=== PATIENT | female | born 1960 | race Caucasian/White ===

== ENCOUNTER 2024-04-29 07:48 | Inpatient (IN) | payer OTHER ==
[2024-04-29] VITALS (14 sets, daily range): BP systolic 149–170; BP diastolic 70–95
[~2024-04-29] VITALS: Ht 152.4 cm; Wt 77.2 kg
[2024-04-29] MEDS ORDERED: ALBUTEROL SULFATE 0.5% 2.5 MG/0.5 ML VIAL ONE (07:55)
[2024-04-29] MEDS ORDERED: ALBUTEROL SULFATE 0.5% 2.5 MG/0.5 ML VIAL INH ONE (08:00)
[2024-04-29 08:12] LABS: PLATELET COUNT 292 K/uL (140-440)
[2024-04-29 08:14] LABS: HEMATOCRIT 41.6 % (35.0-50.0); MCH 28.1 (27-36); MCHC 31.3 g/dl (30-36); MCV 89.8 fl (81-99); RBC 4.64 M/ul (4.3-5.7); RDW 19.2 (10.5-15.0)
[2024-04-29] MEDS ORDERED: SODIUM CHLORIDE 0.9% 500 ML IV PRN ×2 (08:15→08:45)
[2024-04-29] MEDS ORDERED: CEFTRIAXONE/SODIUM CHLORIDE 1 GM/100 ML PIGGYBACK IV ONE (08:15)
[2024-04-29 08:32] LABS: ALBUMIN 3.7 g/dL (3.4-5.0); ALBUMIN/GLOBULIN RATIO 1.16 (1.1-2.4); BILIRUBIN, TOTAL 0.7 ng/dL (0.2-1.0); BUN/CREATININE RATIO 14.6 (6.0-28.6); CALCIUM 9.3 mg/dL (8.5-10.1); CREATININE, SERUM 0.89 mg/dL (0.55-1.02); PROTEIN, TOTAL 6.9 g/dL (6.4-8.2)
[2024-04-29 08:38] LABS: LYMPHOCYTES, MANUAL DIFF 23; MONOCYTES, MANUAL DIFF 9; NEUTROPHILS, MANUAL DIFF 68
[2024-04-29] MEDS ORDERED: SODIUM CHLORIDE 0.9% 1,000 ML IV ONE (08:45)
[2024-04-29 09:04] LABS: INFLUENZA B NAA NEGATIVE (NEGATIVE); RESPIRATORY SYNCYTIAL VIR NAA NEGATIVE (NEGATIVE)
[2024-04-29 09:09] LABS: PH, VENOUS 7.347 (7.31-7.41)
[2024-04-29] MEDS ORDERED: LIDOCAINE 2% VISCOUS 6 ML SYR TOP ONE (10:00)
[2024-04-29] MEDS ORDERED: ACETAMINOPHEN 325 MG TAB PO PRN (10:30)
[2024-04-29] MEDS ORDERED: ondansetron HCL 4 MG/2 ML VIAL IV PRN (10:30)
--- NOTE | 2024-04-29 11:40 | NUR ---
PT ARRIVES TO CCU ROOM 127, ADMITTED FOR ACUTE HYPOXIC RESP FAILURE. PT ARRIVS ON BIPAP WITH RT PRESENT. PT IS RESTING WITH EYES CLOSED BUT DOES AROUSE WITH VERBAL STIMULATION, ANSWERS QUESTIONS WITH SHORT ANSWERS THROUGH THE BIAP MASK. BIPAP IS AT 16/8 25%. PT ASKED IF SHE IS FEELING BETTER, SHE STATES "YES" AND WHEN ASKED IF HER BREATHING FEELS LABORED SHE STAES "NO". SPO2 97% ON THESE SETTINGS. LUNGS ARE DIM IN BASES, VERY LIGHT WHEEZES IN UPPER LOBES. CALL LIGHT IN REACH AND PT STATES SHE KNOWS HOW TO USE IT.
[2024-04-29] MEDS ORDERED: PHARMACY RENAL DOSE ADJUSTMENT 1 DOSE MISC PO SCH (12:00)
[2024-04-29] MEDS ORDERED: DEXTROSE 50% 50 ML SYR IV PRN ×2 (12:15)
[2024-04-29] MEDS ORDERED: IBLOOD GLUCOSE TEST STRIP 1 EA TEST XX PRN (12:15)
[2024-04-29] MEDS ORDERED: ALBUTEROL/IPRATROPIUM 3 ML NEB INH PRN (12:15)
[2024-04-29] MEDS ORDERED: BENZONATATE 100 MG CAP PO PRN (12:15)
[2024-04-29] MEDS ORDERED: VANCOMYCIN PER PHARMACY PROTOCOL IV SCH (12:15)
[2024-04-29] MEDS ORDERED: GLUCAGON,HUMAN RECOMBINANT 1 MG/ML VIAL SUB-Q PRN (12:15)
[2024-04-29] MEDS ORDERED: DEXTROSE 5% 1,000 ML IV PRN (12:15)
[2024-04-29] MEDS ORDERED: VANCOMYCIN HCL 2,000 MG in DEXTROSE 5% 500 ML IV ONE (12:30)
--- NOTE | 2024-04-29 12:44 | NUR ---
RT IN WITH PT
--- NOTE | 2024-04-29 12:55 | EKG ---
[facility] [address] [place] [address] Signed Sinus tachycardia Right atrial enlargement Borderline ECG When compared with ECG of 17-APR-2024 21:34, , No significant change was found Confirmed by Mary Eller MD () on 04/29/2024 12:54:46 PM Electronically Signed By: MARY ELLER MD 04/29/24 1255 PATIENT NAME: JAYSHREE OVALLE Electrocardiogram DATE OF : 58 PHYSICIAN: MARY ELLER MD REPORT #: [id number] REPORT IS CONFIDENTIAL AND NOT TO BE RELEASED WITHOUT AUTHORIZATION
[2024-04-29] MEDS ORDERED: hydrALAZINE HCL 20 MG/ML VIAL IV PRN (13:00)
--- NOTE | 2024-04-29 13:01 | NUR ---
UPDATE TO DR ELLER REGARDING BPS, ORDER BEING PUT IN FOR PRN HYDRALAZINE.
[2024-04-29] MEDS ORDERED: AMOX TR-K CLV1 EAC1 PO (13:07)
[2024-04-29] MEDS ORDERED: NICOTINE PATCH1 EACH TOP (13:08)
[2024-04-29] MEDS ORDERED: RESTORA RX CAP1 EACH PO (13:08)
[2024-04-29] MEDS ORDERED: OMEPRAZOLE40 MG PO (13:09)
[2024-04-29] MEDS ORDERED: VENTOLIN HFA18 GM INH (13:09)
[2024-04-29] MEDS ORDERED: ATORVASTATIN CA20 MG PO (13:10)
[2024-04-29] MEDS ORDERED: CITALOPRAM HBR10 MG PO (13:10)
[2024-04-29] MEDS ORDERED: HYDROCHLOROTHIA25 MG PO (13:11)
[2024-04-29] MEDS ORDERED: FLUTICASONE-SA1 EAC5 INH (13:11)
[2024-04-29] MEDS ORDERED: DILTIAZEM ER120 MG PO (13:11)
[2024-04-29] MEDS ORDERED: CETIRIZINE HCL10 MG PO (13:12)
[2024-04-29] MEDS ORDERED: INCRUSE ELLI62.5 MCG INH (13:12)
[2024-04-29] MEDS ORDERED: MONTELUKAST SOD10 MG PO (13:13)
[2024-04-29] MEDS ORDERED: GABAPENTIN300 MG PO (13:13)
[2024-04-29] MEDS ORDERED: VALSARTAN320 MG PO (13:14)
[2024-04-29] MEDS ORDERED: FLUTICASONE PRO16 GM NAS (13:15)
[2024-04-29] MEDS ORDERED: CYCLOBENZAPRINE5 MG PO (13:16)
[2024-04-29] MEDS ORDERED: ALBUTEROL2.5 MG/3 M INH (13:17)
[2024-04-29] MEDS ORDERED: IPRAT-ALBUT 0.5-3 ML INH (13:19)
[2024-04-29] MEDS ORDERED: NICOTINE LOZENGE2 M2 MM (13:21)
--- NOTE | 2024-04-29 13:45 | NUR ---
medication reconciled using pharmacy records and discharge orders from last week
[2024-04-29] MEDS ORDERED: methylPREDNISolone SOD SUCC 40 MG/ML VIAL IV SCH (14:00)
[2024-04-29 15:21] LABS: BASE EXCESS, BLOOD GAS 5.2 mmol/L (-2-2); HCO3, BLOOD GAS 27.7 mmol/L (22-26); O2 SATURATION, BLOOD GAS 96.8 % (95.0-100.0); PCO2, BLOOD GAS 32.5 mmHg (35-45); PH, BLOOD GAS 7.54 (7.35-7.45); TOTAL CO2, BLOOD GAS 28.7
--- NOTE | 2024-04-29 15:28 | NUR ---
CALLED CALLED TO REPORT CRITICAL LAB VALUE TROPONIN I 167.2, ALSO MIHAI WITH R.T. TALKED WITH IN REGARDS TO ABG AND PLAN OF CARE WITH BIPAP/CPAP
--- NOTE | 2024-04-29 15:51 | NUR ---
PT CONT TO REST WEARING CPAP, IN TO DO ASSESSMENT AND ADJUST MASK, PT HAS NO REQUESTS AT THIS TIME.
[2024-04-29] MEDS ORDERED: ALBUTEROL/IPRATROPIUM 3 ML NEB INH SCH (16:00)
[2024-04-29] MEDS ORDERED: INSULIN LISPRO 100 UNIT/ML ML SUB-Q SCH (17:00)
[2024-04-29] MEDS ORDERED: IBLOOD GLUCOSE TEST STRIP 1 EA TEST VI SCH (17:00)
--- NOTE | 2024-04-29 17:12 | NUR ---
PT STATES SHE IS NOT HUNGRY AT THIS TIME. CONT TO WEAR CPAP 12 25%.
--- NOTE | 2024-04-29 18:49 | NUR ---
PT RESTING, WAKES FOR BLOOD SUGAR CHECK, DENIES NEEDS, CONT ON CPAP.
--- NOTE | 2024-04-29 20:30 | NUR ---
PATIENT TAKEN OFF CPAP PER REQUEST TO VISIT WITH HER FATHER. PATIENT REQUEST O2 PER NC FOR RESPIRTORY COMFORT. 2L NC PLACE AND PERSONAL FAN IN PLACE FOR AIR MOVEMENT. PATIENT IS AAOX4. REPORTS FEELING VERY TIRED. PURE WIC HAD BEEN DISPLACED WITH MOVEMENT AND PATIENT HAD VOIDED IN BED AT LEAST TWICE. LARGE AMOUNT OF URINE NOTED. BED LINENS CHANGED, NEW GOWN AND KRISTA CARE PROVIDED. NEW PURE WIC IN PLACE. ASSISTED PATIENT TO POSITION FOR COMFORT. VS STABLE. TOLERATING 2L AFTER ACTIVITY. CALL LIGHT IN REACH. LIGHTS DIMMED PER REQUEST. ALLOW PATIENT TO REST.
[2024-04-29] MEDS ORDERED: FAMOTIDINE 20 MG TAB PO SCH (21:00)
[2024-04-29] MEDS ORDERED: VANCOMYCIN HCL 1,000 MG in DEXTROSE 5% 250 ML IV SCH (21:00)
[2024-04-29] MEDS ORDERED: GABAPENTIN 300 MG CAP PO SCH (21:00)
--- NOTE | 2024-04-29 21:30 | NUR ---
PATIENT PROVIDED SCHEDULED MEDS; INCLUDING SOME HOME MEDS PER REQUEST. SEE EMAR. PATIENT REPORTS FEELING TIRED. SHE IS RELUCTANT TO WEARING THE FACILITY CPAP BUT DOES AGREE TO WEAR IT FOR THE NIGHT. HER FATHER AGREED TO BRING HER CPAP IN THE MORNING. PATIENT DENIED FEELING SOB AT THIS TIME. REQUEST HER ORDER FOR FOOD IN THE MORNING. ENCOURAGED PATIENT TO REST. CALL LIGHT IN REACH.
--- NOTE | 2024-04-29 22:30 | NUR ---
IV ABX FINISHED. PATIENT SL. IV SITES WNL X2. PATIENT APPEARS RESTFUL ON CPAP. WAKES BREIFLY WHILE RN IN ROOM. CALL LIGHT IN REACH. VS STABLE.
[2024-04-30] VITALS (10 sets, daily range): BP systolic 127–170; BP diastolic 54–77
--- NOTE | 2024-04-30 07:30 | NUR ---
REPORT RECEIVED FROM ELIOT REVELES.
--- NOTE | 2024-04-30 08:00 | NUR ---
BREAKFAST BROUGHT IN TO PT, LAB IN TO DRAW WELL. PT IS ON NC AND REPORTS FEELING SHORT OF BREATH, DOES APPEAR SHORT OF BREATH, SATS REMAIN 96-97%. PT STATES SHE WANTS TO EAT BREAKFAST FIRST AND THEN SHE WANTS TO WEAR HER CPAP. ASSESSMENT DONE, CALL LIGHT IN REACH.
[2024-04-30 08:21] LABS: BASOPHILS 0.2 % (0-2); HEMATOCRIT 37.6 % (35.0-50.0); HEMOGLOBIN 11.9 g/dL (12.0-18.0); LYMPHOCYTES 3.2 % (24-44); MCH 27.7 (27-36); MCHC 31.7 g/dl (30-36); MCV 87.3 fl (81-99); MONOCYTES 3.8 % (0-12); NEUTROPHILS 92.8 % (39-80); PLATELET COUNT 214 K/uL (140-440); RBC 4.31 M/ul (4.3-5.7); RDW 18.9 (10.5-15.0)
[2024-04-30 08:38] LABS: ANION GAP 12.5 (7-21); BUN/CREATININE RATIO 32.2 (6.0-28.6); CALCIUM 8.7 mg/dL (8.5-10.1); CREATININE, SERUM 0.59 mg/dL (0.55-1.02); POTASSIUM 3.5 mmol/L (3.5-5.1)
[2024-04-30] MEDS ORDERED: dilTIAZem HCL 120 MG CAPCR PO SCH (09:00)
[2024-04-30] MEDS ORDERED: LOSARTAN POTASSIUM 50 MG TAB PO SCH (09:00)
[2024-04-30] MEDS ORDERED: hydroCHLOROthiazide 25 MG TAB PO SCH (09:00)
--- NOTE | 2024-04-30 11:10 | NUR ---
LUNCH ORDERED PLACED, HER FATHER OSMEL HAS ARRIVED TO VISIT AND IS AT BEDSIDE
[2024-04-30] MEDS ORDERED: NICOTINE POLACRILEX 4 MG LOZENGE BUCCAL PRN (11:15)
--- NOTE | 2024-04-30 12:33 | NUR ---
PT HAS JUST WORKED WITH RT, HAD HOME CPAP SET UP. CONT TO WEAR 2L/NC TO SIT UP IN CHAIR TO EAT LUNCH. FATHER IN ROOM WITH PT, ASSESSMENT DONE. PT C/O SOME BACK PAIN, PRN TYLENOL GIVEN.
--- NOTE | 2024-04-30 14:20 | NUR ---
PT RESTING WEARING HER HOME CPAP, VSS, AWAKENS BRIEFLY, DENIES NEEDS, BACK TO SLEEP.
--- NOTE | 2024-04-30 15:48 | NUR ---
RT IN TO DO NEB TX
--- NOTE | 2024-04-30 18:00 | NUR ---
PT IS DONE WITH DINNER, WANTS TO TRY TO SLEEP WEARING HOME CPAP. ALSO REQUESTS [place]WICK TO BE PUT BACK IN PLACE.
--- NOTE | 2024-04-30 19:30 | NUR ---
PATIENT RESTING WITH EYES CLOSED. ON HOME CPAP. VS STABLE. CALL LIGHT IN REACH.
--- NOTE | 2024-04-30 20:30 | NUR ---
PATIENT WAKES EASILY TO VOICE. DENIED ANY CONCERNS. LUNG SOUNDS ARE CLEAR BUT DIMINISHED THROUGHOUT. OCCATIONAL COUGHING WITH NO SPUTUM NOTED. NO GI UPSET, ABD SOFT. PATIENT DENIED ANY NEEDS. CALL LIGHT IN REACH. VS STABLE.
--- NOTE | 2024-04-30 21:30 | NUR ---
PATIENT PROVIDED SCHEDULED MEDS. IV SITE IN LEFT WRIST DC DUE TO LEAKING. IV ABX STARTED IN RIGHT AC, SITE WNL. PATIENT DENIED ANY NEEDS OR CONCERNS. PURE WIC IN PLACE PER REQUEST. LIGHTS DIMMED. CALL LIGHT IN REACH.
--- NOTE | 2024-04-30 23:59 | NUR ---
PATIENT RESTING ON CPAP WITH EYES CLOSED. VS STABLE. CALL LIGHT IN REACH.
[2024-05-01] VITALS (7 sets, daily range): BP systolic 147–191; BP diastolic 54–94
--- NOTE | 2024-05-01 03:09 | NUR ---
patient provided warm blanket per request. patient appears to be resting comfortably on home cpap
--- NOTE | 2024-05-01 05:15 | NUR ---
BHAVNA RT AND ELIJAH RN IN FOR ABG DRAW. PATIENT AGREED TO DRAW AND TOLERATED WELL. PATIENT RESTING IN BED. CALL LIGHT IN REACH. NO OTHER NEEDS AT THIS TIME.
[2024-05-01 05:30] LABS: BASE EXCESS, BLOOD GAS 7.5 mmol/L (-2-2); HCO3, BLOOD GAS 30.8 mmol/L (22-26); O2 SATURATION, BLOOD GAS 94.5 % (95.0-100.0); PCO2, BLOOD GAS 37.8 mmHg (35-45); PH, BLOOD GAS 7.52 (7.35-7.45); PO2, BLOOD GAS 69 mmHg (80-100)
--- NOTE | 2024-05-01 07:40 | NUR ---
RT IN TO SEE PT, PT RESTING WEARING CPAP
--- NOTE | 2024-05-01 07:55 | NUR ---
PT SITTING UP EATING BREAKFAST, DENIES NEEDS AT THIS TIME.
[2024-05-01] MEDS ORDERED: PREDNISONE20 MG PO (09:23)
--- NOTE | 2024-05-01 09:26 | NUR ---
SPOKE WITH MICHAELLE WITH [facility]. PRIOR TO THE PATIENT DC HER PCP CANCELED THE ORDER FOR THE TRILOGY AND ADVISED THE PATIENT SHE DID NOT NEED IT. WHEN [facility] ARRIVED FOR THE [facility] VISIT THE PATIENT DECLINED. AT THAT TIME [facility] CANCELLED THE RX, BUT WILL REINSTATE IT AT THIS TIME. UPDATED CLINICALS SENT. PER [facility] IT WILL TAKE A FEW DAYS FOR THE SET UP PROCESS TO BE COMPLETED. WILL LET PATIENT AND STAFF KNOW.
--- NOTE | 2024-05-01 09:45 | NUR ---
CASE MANAGEMENT IN TALKING ABOUT PLAN FOR HOME NEEDS WITH PT
--- NOTE | 2024-05-01 10:41 | NUR ---
PT SITTING UP IN CHAIR, DENIES NEEDS, CALL LIGHT IN REACH. PT USING HER TABLET. WHEN ASKED HOW SHE IS FEELING AND BREATHING SHE STATES "I FEEL PRETTY GOOD!".
--- NOTE | 2024-05-01 11:35 | NUR ---
PT CONT TO SIT UP IN CHAIR, AWARE OF DISCHARGE, WAITING ON DAD TO COME AND PICK HER UP AND BRING SOME CLOTHES. DENIES NEEDS AT THIS TIME.
--- NOTE | 2024-05-01 12:20 | NUR ---
RT IN TO DO NEB TX
--- NOTE | 2024-05-01 12:28 | NUR ---
TOOK VS FOR PT DISHCARGE, BP'S ELEVATED- 199/6 (118). HOSPITALIST NOTIFIED, ORDER GIVEN FOR CLONIDINE PO, WILL GIVE AND REASSESS.
[2024-05-01] MEDS ORDERED: cloNIDine HCL 0.1 MG TAB PO ONE (12:30)
--- NOTE | 2024-05-01 14:06 | NUR ---
PT REQUESTED PRAYER FOR SUPPORT PRIOR TO DISCHARGE. PROVIDED PRAYER, VERIFIED PT HAD APPROPRIATE SUPPORTS IN PLACE. PT EXPRESSED GRATITUDE, DETERMINATION, HOPE.
== END 2024-05-01 14:00 | disposition home or self-care (01) | DRG 189 ==
LOC: ED 07:48 → CCU 10:30 → EDBD 10:30 → CCU 05-01 14:00
PROVIDERS: Internal Medicine; ADMIT Family Medicine; ATTEND Family Medicine
PROC: 5A09357 Assistance with Respiratory Ventilation, Less than 24 Consecutive Hours, Continuous Positive Airway Pressure (ICD-10-PCS; principal; 2024-04-29)
PROC: 4A033R1 Measurement of Arterial Saturation, Peripheral, Percutaneous Approach (ICD-10-PCS; 2024-04-29)
DX: J96.21 Acute and chronic respiratory failure with hypoxia (principal); J44.1 Chronic obstructive pulmonary disease with (acute) exacerbation; R79.89 Other specified abnormal findings of blood chemistry; E11.9 Type 2 diabetes mellitus without complications; F17.210 Nicotine dependence, cigarettes, uncomplicated; I10 Essential (primary) hypertension; E03.9 Hypothyroidism, unspecified; E11.65 Type 2 diabetes mellitus with hyperglycemia; Z98.890 Other specified postprocedural states; Z88.8 Allergy status to other drugs, medicaments and biological substances; Z88.1 Allergy status to other antibiotic agents; Z90.49 Acquired absence of other specified parts of digestive tract; Z90.89 Acquired absence of other organs; Z90.710 Acquired absence of both cervix and uterus
CPT/HCPCS: 36415; 36600; 71045; 80048; 80053; 80202; 82803; 83605; 83735; 84484; 85025; 87070; 87075; 87205; 87502; 93005; 93010; 94640; 94660; 94760; 94799; A9270; J0360; J0696; J1815; J2919; J3370; J7030; J7040; J7060; U0002